=== PATIENT | male | born 1950 | race Caucasian/White ===

== ENCOUNTER → 2016-04-09 | Outpatient (REF) | payer BC ==
[2016-04-09 19:00] LABS: ALBUMIN 4.1 GM/DL (3.2-5.2); ALBUMIN/GLOBULIN RATIO 1.11 (1.00-1.93); ALKALINE PHOSPHATASE 78 U/L (45-117); ALT/SGPT 54 U/L (12-78); ANION GAP 12 MEQ/L (8-16); AST/SGOT 30 U/L (15-37); BILIRUBIN,TOTAL 0.5 MG/DL (0.2-1.0); BLOOD UREA NITROGEN 15 MG/DL (7-18); CALCIUM LEVEL 9.4 MG/DL (8.8-10.2); CARBON DIOXIDE LEVEL 23 MEQ/L (21-32); CHLORIDE LEVEL 104 MEQ/L (98-107); CHOLESTEROL LEVEL 189 MG/DL (<200); GLOMERULAR FILTRATION RATE > 60.0 (>49); GLUCOSE, FASTING 110 MG/DL (80-110); POTASSIUM SERUM 4.5 MEQ/L (3.5-5.1); SODIUM LEVEL 139 MEQ/L (136-145); TOTAL PROTEIN 7.8 GM/DL (6.4-8.2); TRIGLYCERIDES LEVEL 197 MG/DL (<150)
== END ==
LOC: M SFHCCLAY 12:18
PROVIDERS: ATTEND Nurse Practitioner Family
DX: E11.9 Type 2 diabetes mellitus without complications (principal); E78.2 Mixed hyperlipidemia

== ENCOUNTER → 2016-04-23 | Outpatient (REF) | payer BC ==
[2016-04-23 17:32] LABS: CALCIUM OXALATE CRYSTALS SMALL
[2016-04-23 17:35] LABS: BASO # 0.1 K/mm3 (0.0-0.2); BASO % 0.8 % (0.0-1.0); EOS # 0.7 K/mm3 (0.0-0.50); EOS % 8.7 % (0.0-3.0); LARGE UNSTAINED CELL # 0.2 K/mm3 (0.0-0.4); LARGE UNSTAINED CELL % 2.3 % (0.0-4.0); LYMPH # 1.8 K/mm3 (1.5-4.5); LYMPH % 20.9 % (24.0-44.0); MEAN CORPUSCULAR HEMOGLOBIN 31.2 pg (27.0-33.0); MEAN CORPUSCULAR HGB CONC 33.6 g/dl (32.0-36.5); MONO # 0.4 K/mm3 (0.0-0.8); MONO % 4.5 % (0.0-5.0); NEUTROPHILS # 5.3 K/mm3 (1.8-7.7); NEUTROPHILS % 62.9 % (36.0-66.0); PLATELET COUNT, AUTOMATED 182 k/mm3 (150-450); RED CELL DISTRIBUTION WIDTH 12.8 % (11.5-14.5); WHITE BLOOD COUNT 8.4 K/mm3 (4.0-10.0)
== END ==
LOC: M SFHCCLAY 13:09
PROVIDERS: ATTEND Nurse Practitioner Family
DX: R35.0 Frequency of micturition (principal)
CPT/HCPCS: 81001; 85025; 87086; G0103

== ENCOUNTER → 2016-06-13 | Outpatient (REF) | payer BC | LOC: M SFHCPLAZ 15:54 | PROVIDERS: ATTEND Nurse Practitioner Family | DX: L98.9 Disorder of the skin and subcutaneous tissue, unspecified (principal); D04.39 Carcinoma in situ of skin of other parts of face; Z85.828 Personal history of other malignant neoplasm of skin ==

== ENCOUNTER → 2016-07-30 | Outpatient (REF) | payer BC ==
[2016-07-30 18:17] LABS: MEAN CORPUSCULAR HGB CONC 33.6 g/dl (32.0-36.5); MEAN CORPUSCULAR VOLUME 95.4 fl (80.0-96.0); WHITE BLOOD COUNT 9.8 K/mm3 (4.0-10.0)
[2016-07-30 20:26] LABS: ANION GAP 6 MEQ/L (8-16); BLOOD UREA NITROGEN 14 MG/DL (7-18); CALCIUM LEVEL 9.5 MG/DL (8.8-10.2); CARBON DIOXIDE LEVEL 28 MEQ/L (21-32); CHLORIDE LEVEL 105 MEQ/L (98-107); CREATININE FOR GFR 0.99 MG/DL (0.70-1.30); GLOMERULAR FILTRATION RATE > 60.0 (>49); GLUCOSE, FASTING 104 MG/DL (80-110); POTASSIUM SERUM 4.6 MEQ/L (3.5-5.1); SODIUM LEVEL 139 MEQ/L (136-145)
== END ==
LOC: M SFHCPLAZ 14:10 → M LABDRAWC 14:11
PROVIDERS: ATTEND Physician Assistant
DX: Z01.818 Encounter for other preprocedural examination (principal)

== ENCOUNTER → 2016-10-10 | Outpatient (REF) | payer BC ==
[2016-10-10 11:30] LABS: ALBUMIN 3.6 GM/DL (3.2-5.2); ALBUMIN/GLOBULIN RATIO 0.97 (1.00-1.93); ALKALINE PHOSPHATASE 79 U/L (45-117); ALT/SGPT 60 U/L (12-78); ANION GAP 5 MEQ/L (8-16); AST/SGOT 36 U/L (15-37); BILIRUBIN,TOTAL 0.4 MG/DL (0.2-1.0); BLOOD UREA NITROGEN 12 MG/DL (7-18); CALCIUM LEVEL 9.1 MG/DL (8.8-10.2); CARBON DIOXIDE LEVEL 28 MEQ/L (21-32); CHLORIDE LEVEL 108 MEQ/L (98-107); CHOLESTEROL LEVEL 155 MG/DL (<200); CREATININE FOR GFR 1.15 MG/DL (0.70-1.30); GLOMERULAR FILTRATION RATE > 60.0 (>49); GLUCOSE, FASTING 135 MG/DL (80-110); POTASSIUM SERUM 4.3 MEQ/L (3.5-5.1); SODIUM LEVEL 141 MEQ/L (136-145); TOTAL PROTEIN 7.3 GM/DL (6.4-8.2); TRIGLYCERIDES LEVEL 123 MG/DL (<150)
== END ==
LOC: M SFHCCLAY 08:32
PROVIDERS: ATTEND Nurse Practitioner Family
DX: E11.9 Type 2 diabetes mellitus without complications (principal); E78.2 Mixed hyperlipidemia; R80.9 Proteinuria, unspecified

== ENCOUNTER → 2016-10-17 | Outpatient (REF) | payer BC ==
[2016-10-17 12:03] LABS: CALCIUM OXALATE CRYSTALS SMALL
== END ==
LOC: M SFHCCLAY 09:13
PROVIDERS: ATTEND Nurse Practitioner Family
DX: R80.9 Proteinuria, unspecified (principal); E11.8 Type 2 diabetes mellitus with unspecified complications

== ENCOUNTER → 2016-11-26 | Outpatient (CLI) | payer BC ==
--- NOTE | 2016-11-26 14:37 | REP ---
LOW-DOSE NONCONTRAST CHEST CT: HISTORY: Lung cancer screening study. Former smoker. COMPARISON: Chest x-ray 07/17/2015. FINDINGS: Digital cell plasterer radiograph is unremarkable. There are mild emphysematous changes in the upper lobes, right more so than left. An area of pleuroparenchymal fibrosis is seen in the right apex. There is a zone of mild pleural thickening along the major fissure on the right, and minimal fibrotic changes are seen in the bases. No significant pulmonary nodule or mass lesion is apparent. IMPRESSION: Negative low-dose screening chest CT study. Signed by Osman Degroot MD 11/26/2016 04:33 P
== END ==
LOC: M RAD 07:16
PROVIDERS: ATTEND Nurse Practitioner Family
DX: Z87.891 Personal history of nicotine dependence (principal)

== ENCOUNTER → 2017-07-29 | Outpatient (REF) | payer BC ==
[2017-07-29 17:50] LABS: ESTIMATED AVERAGE GLUCOSE 157 MG/DL (60-110); HEMOGLOBIN A1c 7.1 %
[2017-07-29 17:53] LABS: ALBUMIN 3.8 GM/DL (3.2-5.2); ALBUMIN/GLOBULIN RATIO 1.03 (1.00-1.93); ALKALINE PHOSPHATASE 86 U/L (45-117); ALT/SGPT 77 U/L (12-78); ANION GAP 5 MEQ/L (8-16); AST/SGOT 54 U/L (7-37); BILIRUBIN,TOTAL 0.5 MG/DL (0.2-1.0); BLOOD UREA NITROGEN 12 MG/DL (7-18); CALCIUM LEVEL 9.2 MG/DL (8.8-10.2); CARBON DIOXIDE LEVEL 27 MEQ/L (21-32); CHLORIDE LEVEL 108 MEQ/L (98-107); GLOMERULAR FILTRATION RATE > 60.0 (>49); GLUCOSE, FASTING 123 MG/DL (70-100); POTASSIUM SERUM 4.4 MEQ/L (3.5-5.1); SODIUM LEVEL 140 MEQ/L (136-145); TOTAL PROTEIN 7.5 GM/DL (6.4-8.2)
== END ==
LOC: M SFHCCLAY 12:49
DX: E11.8 Type 2 diabetes mellitus with unspecified complications (principal); E55.9 Vitamin D deficiency, unspecified
CPT/HCPCS: 80053

== ENCOUNTER → 2017-08-04 | Outpatient (CLI) | payer BC ==
[~2017-08-04] MED LIST: ISOVUE-370 76% 100ML VIAL (Q9967) As Ordered
== END ==
LOC: M RAD 08:30
DX: K46.9 Unspecified abdominal hernia without obstruction or gangrene (principal); K40.90 Unilateral inguinal hernia, without obstruction or gangrene, not specified as recurrent; K80.20 Calculus of gallbladder without cholecystitis without obstruction; N40.1 Benign prostatic hyperplasia with lower urinary tract symptoms; Z85.528 Personal history of other malignant neoplasm of kidney
CPT/HCPCS: Q9967

== ENCOUNTER → 2017-08-05 | Outpatient (REF) | payer BC ==
[2017-08-08 00:08] LABS: PSA TOTAL 0.7 ng/mL (0.0-4.0)
== END ==
LOC: M LAB REF 17:38
DX: N40.1 Benign prostatic hyperplasia with lower urinary tract symptoms (principal)
CPT/HCPCS: 84154

== ENCOUNTER → 2018-01-30 | Outpatient (CLI) | payer BC | LOC: M RAD 07:35 | DX: Z12.2 Encounter for screening for malignant neoplasm of respiratory organs (principal); Z87.891 Personal history of nicotine dependence | CPT/HCPCS: G0297 ==

== ENCOUNTER → 2018-03-26 | Outpatient (REF) | payer BC | LOC: M SFHCPLAZ 08:14 | PROVIDERS: ATTEND Nurse Practitioner Family | DX: R79.89 Other specified abnormal findings of blood chemistry (principal) ==

== ENCOUNTER → 2018-04-01 | Outpatient (CLI) | payer BC ==
--- NOTE | 2018-04-02 04:49 | REP ---
Clinical: Elevated liver function tests . Technique: Guajardo scale ultrasound using curved array transducer. Findings: The liver is enlarged and echogenic with poor through transmission suggesting fatty infiltration. No focal hepatic lesion identified. Pancreas is incompletely evaluated due to interposed bowel gas but visualized portions appear normal. The gallbladder is partially contracted and demonstrates multiple gallstones. No pericholecystic fluid identified or sonographic Vidal's sign was elicited. No biliary ductal dilatation is appreciated, and the common bile duct measures 4.0 mm diameter. The right kidney is normal in reniform shape without hydronephrosis and measures 13.4 x 7.6 x 6.2 cm. No ascites. Visualized portions of the abdominal aorta normal. Impression: 1. Hepatomegaly with fatty infiltration. No focal hepatic lesion identified. 2. Cholelithiasis. 3. Enlarged right kidney may be secondary to chronic vascular compromise of the left kidney. Electronically Signed by Maxi Bermudez MD 04/02/2018 04:41 A
== END ==
LOC: M RAD 07:21
PROVIDERS: ATTEND Nurse Practitioner Family
DX: R16.0 Hepatomegaly, not elsewhere classified (principal); K80.00 Calculus of gallbladder with acute cholecystitis without obstruction; N28.81 Hypertrophy of kidney; R79.89 Other specified abnormal findings of blood chemistry

== ENCOUNTER → 2018-05-05 | Outpatient (REF) | payer BC ==
[2018-05-05 16:31] LABS: ALT/SGPT 110 U/L (12-78); BILIRUBIN,TOTAL 0.5 MG/DL (0.2-1.0); BLOOD UREA NITROGEN 14 MG/DL (7-18); CALCIUM LEVEL 9.5 MG/DL (8.8-10.2); CARBON DIOXIDE LEVEL 27 MEQ/L (21-32); CHLORIDE LEVEL 102 MEQ/L (98-107); CREATININE FOR GFR 1.01 MG/DL (0.70-1.30); GLOMERULAR FILTRATION RATE > 60.0 (>49); GLUCOSE, FASTING 124 MG/DL (70-100); POTASSIUM SERUM 4.6 MEQ/L (3.5-5.1); SODIUM LEVEL 138 MEQ/L (136-145); TOTAL PROTEIN 7.8 GM/DL (6.4-8.2)
[2018-05-05 17:16] LABS: CREATININE, URINE 75.4 MG/DL; MAU/CREAT RATIO 724.1 MCG/MG (0.0-30.0)
[2018-05-05 17:24] LABS: HEMOGLOBIN A1c 7.6 %
== END ==
LOC: M SFHCCLAY 11:44
PROVIDERS: ATTEND Nurse Practitioner Family
DX: R79.89 Other specified abnormal findings of blood chemistry (principal); E11.65 Type 2 diabetes mellitus with hyperglycemia; R80.9 Proteinuria, unspecified

== ENCOUNTER → 2018-08-03 | Outpatient (REF) | payer BC ==
[2018-08-03 17:00] LABS: ALBUMIN 3.9 GM/DL (3.2-5.2); ALT/SGPT 58 U/L (12-78); BILIRUBIN,TOTAL 0.5 MG/DL (0.2-1.0); BLOOD UREA NITROGEN 15 MG/DL (7-18); CARBON DIOXIDE LEVEL 26 MEQ/L (21-32); CHLORIDE LEVEL 107 MEQ/L (98-107); CHOLESTEROL LEVEL 166 MG/DL (<200); CHOLESTEROL RISK RATIO 3.688 (<5); CREATININE FOR GFR 1.05 MG/DL (0.70-1.30); GLOMERULAR FILTRATION RATE > 60.0 (>49); GLUCOSE, FASTING 122 MG/DL (70-100); HDL CHOLESTEROL 45 MG/DL (>40); LDL CHOLESTEROL 97 MG/DL (<100); NON-HDL-C 121 MG/DL; POTASSIUM SERUM 4.1 MEQ/L (3.5-5.1); SODIUM LEVEL 139 MEQ/L (136-145); TOTAL PROTEIN 7.6 GM/DL (6.4-8.2); TRIGLYCERIDES LEVEL 119 MG/DL (<150)
[2018-08-03 17:44] LABS: HEMOGLOBIN A1c 6.7 %
[2018-08-03 17:50] LABS: CREATININE, URINE 99.7 MG/DL; MAU/CREAT RATIO 796.3 MCG/MG (0.0-30.0)
== END ==
LOC: M SFHCCLAY 11:41
PROVIDERS: ATTEND Nurse Practitioner Family
DX: I10 Essential (primary) hypertension (principal); E11.29 Type 2 diabetes mellitus with other diabetic kidney complication; E78.2 Mixed hyperlipidemia; R80.9 Proteinuria, unspecified

== ENCOUNTER → 2019-02-26 | Outpatient (REF) | payer BC ==
[2019-02-26 12:15] LABS: ALBUMIN 3.4 GM/DL (3.2-5.2); ALT/SGPT 67 U/L (12-78); BILIRUBIN,TOTAL 0.3 MG/DL (0.2-1.0); BLOOD UREA NITROGEN 13 MG/DL (7-18); CALCIUM LEVEL 9.7 MG/DL (8.8-10.2); CARBON DIOXIDE LEVEL 27 MEQ/L (21-32); CHLORIDE LEVEL 108 MEQ/L (98-107); CHOLESTEROL LEVEL 164 MG/DL (<200); CHOLESTEROL RISK RATIO 4.432 (<5); CREATININE FOR GFR 1.09 MG/DL (0.70-1.30); GLOMERULAR FILTRATION RATE > 60.0 (>49); GLUCOSE, FASTING 132 MG/DL (70-100); HDL CHOLESTEROL 37 MG/DL (>40); LDL CHOLESTEROL 80 MG/DL (<100); NON-HDL-C 127 MG/DL; POTASSIUM SERUM 4.2 MEQ/L (3.5-5.1); SODIUM LEVEL 141 MEQ/L (136-145); TRIGLYCERIDES LEVEL 235 MG/DL (<150)
[2019-02-26 12:31] LABS: HEMOGLOBIN A1c 6.7 %
[2019-02-26 13:13] LABS: MAU/CREAT RATIO 683.8 MCG/MG (0.0-30.0)
== END ==
LOC: M SFHCCLAY 06:47
PROVIDERS: ATTEND Nurse Practitioner Family
DX: E11.29 Type 2 diabetes mellitus with other diabetic kidney complication (principal); E78.2 Mixed hyperlipidemia

== ENCOUNTER → 2019-04-08 | Outpatient (CLI) | payer BC ==
--- NOTE | 2019-04-08 08:25 | REP ---
Chest x-ray: Two views. History: Hypertension. Comparison study: July 17, 2015. Findings: The lungs are well inflated and clear. Pleural angles are sharp. Heart size is normal. Pulmonary vasculature is not increased. There are degenerative changes in the thoracic spine. Pulmonary vasculature is not increased. Impression: No acute disease. Electronically Signed by Osman Degroot MD 04/08/2019 08:16 A
== END ==
LOC: M CLY 07:57
PROVIDERS: ATTEND Nurse Practitioner Family
DX: I10 Essential (primary) hypertension (principal)

== ENCOUNTER → 2019-08-12 | Outpatient (REF) | payer BC ==
[2019-08-15 00:06] LABS: PSA TOTAL 0.7 ng/mL (0.0-4.0)
== END ==
LOC: M LABDRAWC 15:51
PROVIDERS: ATTEND Urology
DX: N40.1 Benign prostatic hyperplasia with lower urinary tract symptoms (principal)

== ENCOUNTER → 2020-04-20 | Outpatient (REF) | payer BC ==
[2020-04-20 16:48] LABS: ALBUMIN 3.6 GM/DL (3.2-5.2); ALT/SGPT 106 U/L (12-78); BILIRUBIN,TOTAL 0.6 MG/DL (0.2-1.0); BLOOD UREA NITROGEN 12 MG/DL (7-18); CALCIUM LEVEL 9.3 MG/DL (8.8-10.2); CARBON DIOXIDE LEVEL 28 MEQ/L (21-32); CHLORIDE LEVEL 106 MEQ/L (98-107); CHOLESTEROL LEVEL 176 MG/DL (<200); CREATININE FOR GFR 1.12 MG/DL (0.70-1.30); GLOMERULAR FILTRATION RATE > 60.0 (>42); GLUCOSE, FASTING 95 MG/DL (70-100); HDL CHOLESTEROL 42 MG/DL (>40); LDL CHOLESTEROL 105 MG/DL (<100); NON-HDL-C 134 MG/DL; POTASSIUM SERUM 4.4 MEQ/L (3.5-5.1); SODIUM LEVEL 139 MEQ/L (136-145); TOTAL PROTEIN 7.5 GM/DL (6.4-8.2); TRIGLYCERIDES LEVEL 143 MG/DL (<150)
[2020-04-20 16:52] LABS: TOTAL 25(OH) VITAMIN D 39.9 NG/ML (30.0-100.0)
[2020-04-20 17:15] LABS: MAU/CREAT RATIO 1782.1 MCG/MG (0.0-30.0)
[2020-04-20 18:04] LABS: HEMOGLOBIN A1c 6.5 %
== END ==
LOC: M SFHCCLAY 13:17
PROVIDERS: ATTEND Nurse Practitioner Family
DX: E78.2 Mixed hyperlipidemia (principal); E11.9 Type 2 diabetes mellitus without complications; E55.9 Vitamin D deficiency, unspecified

== ENCOUNTER → 2020-05-17 | Outpatient (CLI) | payer BC ==
--- NOTE | 2020-05-17 10:32 | REP ---
INDICATION: AAA SCREENING, FORMER SMOKER. COMPARISON: None. TECHNIQUE: Real-time sonographic evaluation of the abdominal aorta performed. FINDINGS: There is no sonographic evidence of abdominal aortic aneurysm. Maximum AP diameter of abdominal aorta: Proximal (at diaphragm):2.5 cm. At renal artery level: 1.9 cm Mid abdominal aorta:1.9 cm. Distal abdominal aorta (prebifurcation): 1.8 cm. Maximum AP diameter common iliac arteries: Right: 0.9 mm. Left: 1.2mm. IMPRESSION: No sonographic evidence of abdominal aortic aneurysm. <Electronically signed by Beni Guajardo > 05/17/20 1026
== END ==
LOC: M RAD 08:27
PROVIDERS: ATTEND Nurse Practitioner Family
DX: Z87.891 Personal history of nicotine dependence (principal)

== ENCOUNTER → 2020-07-28 | Outpatient (REF) | payer BC ==
[2020-07-28 17:05] LABS: ALT/SGPT 82 U/L (12-78); BLOOD UREA NITROGEN 12 MG/DL (7-18); CALCIUM LEVEL 9.4 MG/DL (8.8-10.2); CARBON DIOXIDE LEVEL 30 MEQ/L (21-32); CHLORIDE LEVEL 109 MEQ/L (98-107); CREATININE FOR GFR 1.07 MG/DL (0.70-1.30); GLOMERULAR FILTRATION RATE > 60.0 (>42); GLUCOSE, FASTING 110 MG/DL (70-100); POTASSIUM SERUM 3.8 MEQ/L (3.5-5.1); SODIUM LEVEL 145 MEQ/L (136-145)
[2020-07-28 17:06] LABS: ALBUMIN 3.4 GM/DL (3.2-5.2); BILIRUBIN,TOTAL 0.3 MG/DL (0.2-1.0); TOTAL PROTEIN 7.4 GM/DL (6.4-8.2)
[2020-07-28 17:19] LABS: HEMOGLOBIN A1c 6.4 %
[2020-07-28 17:55] LABS: MAU/CREAT RATIO 1811.4 MCG/MG (0.0-30.0)
== END ==
LOC: M SFHCCLAY 11:10
PROVIDERS: ATTEND Nurse Practitioner Family
DX: E11.8 Type 2 diabetes mellitus with unspecified complications (principal); R80.9 Proteinuria, unspecified

== ENCOUNTER → 2020-08-24 | Outpatient (REF) | payer BC | LOC: M LAB REF 15:52 | PROVIDERS: ATTEND Surgery | DX: Z01.812 Encounter for preprocedural laboratory examination (principal); Z20.822 Contact with and (suspected) exposure to COVID-19 ==

== ENCOUNTER → 2021-03-28 | Outpatient (REF) | payer BC ==
[2021-03-28 16:46] LABS: ALBUMIN 3.5 GM/DL (3.2-5.2); BILIRUBIN,TOTAL 0.4 MG/DL (0.2-1.0); CALCIUM LEVEL 9.4 MG/DL (8.8-10.2); CHOLESTEROL RISK RATIO 4.972 (<5); CREATININE FOR GFR 1.28 MG/DL (0.70-1.30); POTASSIUM SERUM 4.8 MEQ/L (3.5-5.1); TOTAL PROTEIN 7.5 GM/DL (6.4-8.2)
[2021-03-28 17:14] LABS: MAU/CREAT RATIO 1591.5 MCG/MG (0.0-30.0)
== END ==
LOC: M SFHCCLAY 11:23
PROVIDERS: ATTEND Family Medicine
DX: E78.2 Mixed hyperlipidemia (principal); E11.29 Type 2 diabetes mellitus with other diabetic kidney complication

== ENCOUNTER → 2021-07-09 | Outpatient (REF) | payer MEDICARE ==
[2021-07-09 17:00] LABS: BLOOD UREA NITROGEN 17 MG/DL (7-18); CALCIUM LEVEL 9.3 MG/DL (8.8-10.2); CARBON DIOXIDE LEVEL 26 MEQ/L (21-32); CHLORIDE LEVEL 111 MEQ/L (98-107); CREATININE FOR GFR 1.08 MG/DL (0.70-1.30); GLOMERULAR FILTRATION RATE > 60.0 (>42); GLUCOSE, FASTING 111 MG/DL (70-100); POTASSIUM SERUM 5.2 MEQ/L (3.5-5.1); SODIUM LEVEL 142 MEQ/L (136-145)
[2021-07-09 17:02] LABS: HEMOGLOBIN A1c 7.3 %
== END ==
LOC: M SFHCCLAY 10:46
PROVIDERS: ATTEND Family Medicine
DX: E11.65 Type 2 diabetes mellitus with hyperglycemia (principal)

== ENCOUNTER → 2021-09-06 | Outpatient (REF) | payer BC, MEDICARE | LOC: M LABDRAWC 15:31 | DX: N40.1 Benign prostatic hyperplasia with lower urinary tract symptoms (principal) ==

== ENCOUNTER → 2021-10-02 | Outpatient (REF) | payer MEDICARE ==
[2021-10-02 18:24] LABS: BLOOD UREA NITROGEN 17 MG/DL (7-18); CARBON DIOXIDE LEVEL 28 MEQ/L (21-32); CHLORIDE LEVEL 109 MEQ/L (98-107); CREATININE FOR GFR 1.25 MG/DL (0.70-1.30); GLOMERULAR FILTRATION RATE > 60.0 (>42); GLUCOSE, FASTING 122 MG/DL (70-100); POTASSIUM SERUM 4.4 MEQ/L (3.5-5.1); SODIUM LEVEL 140 MEQ/L (136-145)
[2021-10-02 23:27] LABS: HEMOGLOBIN A1c 6.2 %
== END ==
LOC: M SFHCCLAY 10:59
PROVIDERS: ATTEND Nurse Practitioner Family
DX: E11.8 Type 2 diabetes mellitus with unspecified complications (principal)

== ENCOUNTER → 2021-10-16 | Outpatient (REF) | payer MEDICARE ==
[2021-10-16 11:58] LABS: HEMOGLOBIN 15.6 g/dl (13.5-17.5); MEAN CORPUSCULAR HGB CONC 33.2 g/dl (32.0-36.5); MEAN CORPUSCULAR VOLUME 93.3 fl (80.0-96.0); PLATELET COUNT, AUTOMATED 140 10^3/uL (150-450); RED BLOOD COUNT 5.04 10^6/uL (4.30-6.10); WHITE BLOOD COUNT 7.8 10^3/uL (4.0-10.0)
[2021-10-16 13:02] LABS: ALBUMIN 3.4 GM/DL (3.2-5.2); ALT/SGPT 65 U/L (12-78); BILIRUBIN,TOTAL 0.5 MG/DL (0.2-1.0); BLOOD UREA NITROGEN 16 MG/DL (7-18); CARBON DIOXIDE LEVEL 29 MEQ/L (21-32); CHLORIDE LEVEL 109 MEQ/L (98-107); CHOLESTEROL LEVEL 134 MG/DL (<200); CHOLESTEROL RISK RATIO 3.116 (<5); GLOMERULAR FILTRATION RATE > 60.0 (>42); GLUCOSE, FASTING 128 MG/DL (70-100); HDL CHOLESTEROL 43 MG/DL (>40); LDL CHOLESTEROL 61 MG/DL (<100); NON-HDL-C 91 MG/DL; POTASSIUM SERUM 4.3 MEQ/L (3.5-5.1); SODIUM LEVEL 141 MEQ/L (136-145); TRIGLYCERIDES LEVEL 150 MG/DL (<150)
[2021-10-16 14:33] LABS: HEMOGLOBIN A1c 6.4 %
== END ==
LOC: M SFHCCLAY 08:41
PROVIDERS: ATTEND Nurse Practitioner Family
DX: E11.29 Type 2 diabetes mellitus with other diabetic kidney complication (principal); I11.9 Hypertensive heart disease without heart failure; E78.5 Hyperlipidemia, unspecified; E55.9 Vitamin D deficiency, unspecified

== ENCOUNTER → 2022-02-26 | Outpatient (CLI) | payer MEDICARE | LOC: M CLY 10:30 | PROVIDERS: ATTEND Nurse Practitioner Family | DX: S63.502D Unspecified sprain of left wrist, subsequent encounter (principal); M79.89 Other specified soft tissue disorders; S62.102A Fracture of unspecified carpal bone, left wrist, initial encounter for closed fracture; X58.XXXA Exposure to other specified factors, initial encounter; Y92.9 Unspecified place or not applicable; Y93.9 Activity, unspecified; Y99.9 Unspecified external cause status; E11.29 Type 2 diabetes mellitus with other diabetic kidney complication; I11.9 Hypertensive heart disease without heart failure; E78.5 Hyperlipidemia, unspecified; E55.9 Vitamin D deficiency, unspecified ==

== ENCOUNTER → 2022-02-26 | Outpatient (REF) | payer MEDICARE ==
[2022-02-26 17:23] LABS: HEMATOCRIT 49.4 % (42.0-52.0); HEMOGLOBIN 15.8 g/dl (13.5-17.5); MEAN CORPUSCULAR HEMOGLOBIN 30.5 pg (27.0-33.0); MEAN CORPUSCULAR VOLUME 95.4 fl (80.0-96.0); PLATELET COUNT, AUTOMATED 191 10^3/uL (150-450); RED BLOOD COUNT 5.18 10^6/uL (4.30-6.10); WHITE BLOOD COUNT 9.2 10^3/uL (4.0-10.0)
[2022-02-26 18:09] LABS: ALBUMIN 3.6 G/DL (3.2-5.2); ALKALINE PHOSPHATASE 97 U/L (46-116); ALT/SGPT 68 U/L (7.0-40); AST/SGOT 38 U/L (<34); BILIRUBIN,TOTAL 0.4 MG/DL (0.3-1.2); BLOOD UREA NITROGEN 14 MG/DL (9-23); CALCIUM LEVEL 9.6 MG/DL (8.3-10.6); CARBON DIOXIDE LEVEL 27 MMOL/L (20-31); CHLORIDE LEVEL 106 MMOL/L (98-107); CHOLESTEROL LEVEL 130 MG/DL (<200); CREATININE FOR GFR 1.08 MG/DL (0.70-1.30); GLOMERULAR FILTRATION RATE > 60.0 (>42); GLUCOSE, FASTING 131 MG/DL (74-106); HDL CHOLESTEROL 43.3 MG/DL (>40); LDL CHOLESTEROL 68.1 MG/DL (<100); NON-HDL-C 87 MG/DL; POTASSIUM SERUM 4.9 MMOL/L (3.5-5.1); SODIUM LEVEL 138 MMOL/L (136-145); TOTAL PROTEIN 7.3 G/DL (5.7-8.2); TRIGLYCERIDES LEVEL 93 MG/DL (<150)
[2022-02-26 18:11] LABS: TOTAL 25(OH) VITAMIN D 41.1 NG/ML (20.0-100.0)
[2022-02-26 19:28] LABS: HEMOGLOBIN A1c 6.3 % (4.0-6.0)
== END ==
LOC: M SFHCCLAY 10:28
PROVIDERS: ATTEND Nurse Practitioner Family
DX: E11.29 Type 2 diabetes mellitus with other diabetic kidney complication (principal); I11.9 Hypertensive heart disease without heart failure; E78.5 Hyperlipidemia, unspecified; E55.9 Vitamin D deficiency, unspecified

== ENCOUNTER → 2022-06-06 | Outpatient (CLI) | payer MEDICARE | LOC: M RAD 15:19 | PROVIDERS: ATTEND Nurse Practitioner Family | DX: Z87.891 Personal history of nicotine dependence (principal) ==

== ENCOUNTER → 2022-08-15 | Outpatient (REF) | payer MEDICARE ==
[2022-08-15 17:43] LABS: CREATININE, URINE 107.5 MG/DL
[2022-08-15 17:45] LABS: ALBUMIN 3.8 G/DL (3.2-5.2); ALKALINE PHOSPHATASE 87 U/L (46-116); ALT/SGPT 56 U/L (7.0-40); AST/SGOT 40 U/L (<34); BILIRUBIN,TOTAL 0.5 MG/DL (0.3-1.2); BLOOD UREA NITROGEN 16 MG/DL (9-23); CALCIUM LEVEL 9.6 MG/DL (8.3-10.6); CARBON DIOXIDE LEVEL 28 MMOL/L (20-31); CHLORIDE LEVEL 105 MMOL/L (98-107); CHOLESTEROL LEVEL 145 MG/DL (<200); CHOLESTEROL RISK RATIO 3.71 (<5); CREATININE FOR GFR 1.17 MG/DL (0.70-1.30); GLOMERULAR FILTRATION RATE > 60.0 (>42); GLUCOSE, FASTING 144 MG/DL (74-106); LDL CHOLESTEROL 66.2 MG/DL (<100); POTASSIUM SERUM 4.5 MMOL/L (3.5-5.1); SODIUM LEVEL 139 MMOL/L (136-145); TOTAL PROTEIN 7.4 G/DL (5.7-8.2); TRIGLYCERIDES LEVEL 199 MG/DL (<150)
[2022-08-15 17:49] LABS: TOTAL 25(OH) VITAMIN D 33.7 NG/ML (20.0-100.0)
== END ==
LOC: M SFHCCLAY 10:49
PROVIDERS: ATTEND Nurse Practitioner Family
DX: E78.2 Mixed hyperlipidemia (principal); I25.10 Atherosclerotic heart disease of native coronary artery without angina pectoris; E11.29 Type 2 diabetes mellitus with other diabetic kidney complication; K76.0 Fatty (change of) liver, not elsewhere classified; E55.9 Vitamin D deficiency, unspecified; N40.1 Benign prostatic hyperplasia with lower urinary tract symptoms

== ENCOUNTER → 2022-09-13 | Outpatient (REF) | payer MEDICARE | LOC: M LABDRAWC 17:21 | PROVIDERS: ATTEND Urology | DX: Z12.5 Encounter for screening for malignant neoplasm of prostate (principal); N40.0 Benign prostatic hyperplasia without lower urinary tract symptoms ==

== ENCOUNTER → 2023-02-17 | Outpatient (REF) | payer MEDICARE ==
[2023-02-17 17:57] LABS: ALBUMIN 3.6 G/DL (3.2-5.2); ALKALINE PHOSPHATASE 76 U/L (46-116); ALT/SGPT 55 U/L (7.0-40); AST/SGOT 54 U/L (<34); BILIRUBIN,TOTAL 0.5 MG/DL (0.3-1.2); BLOOD UREA NITROGEN 13 MG/DL (9-23); CALCIUM LEVEL 9.4 MG/DL (8.3-10.6); CARBON DIOXIDE LEVEL 25 MMOL/L (20-31); CHLORIDE LEVEL 105 MMOL/L (98-107); CHOLESTEROL LEVEL 143 MG/DL (<200); CHOLESTEROL RISK RATIO 3.77 (<5); GLOMERULAR FILTRATION RATE > 60.0 (>42); GLUCOSE, FASTING 146 MG/DL (74-106); HDL CHOLESTEROL 37.9 MG/DL (>40); LDL CHOLESTEROL 75.7 MG/DL (<100); NON-HDL-C 105.1 MG/DL; POTASSIUM SERUM 4.4 MMOL/L (3.5-5.1); SODIUM LEVEL 138 MMOL/L (136-145); TOTAL 25(OH) VITAMIN D 40.3 NG/ML (20.0-100.0); TOTAL PROTEIN 7.1 G/DL (5.7-8.2); TRIGLYCERIDES LEVEL 147 MG/DL (<150)
[2023-02-17 18:07] LABS: HEMOGLOBIN A1c 7.2 % (4.0-6.0)
== END ==
LOC: M SFHCCLAY 10:01
PROVIDERS: ATTEND Nurse Practitioner Family
DX: E78.2 Mixed hyperlipidemia (principal); I25.10 Atherosclerotic heart disease of native coronary artery without angina pectoris; E11.29 Type 2 diabetes mellitus with other diabetic kidney complication; K76.0 Fatty (change of) liver, not elsewhere classified; E55.9 Vitamin D deficiency, unspecified; N40.1 Benign prostatic hyperplasia with lower urinary tract symptoms

== ENCOUNTER → 2023-08-13 | Outpatient (REF) | payer MEDICARE ==
[2023-08-13 17:13] LABS: CREATININE, URINE 164.4 MG/DL
[2023-08-13 17:25] LABS: MAU/CREAT RATIO 841.2 MCG/MG (0.0-30.0)
[2023-08-13 17:41] LABS: ALBUMIN 3.6 G/DL (3.2-5.2); BILIRUBIN,TOTAL 0.5 MG/DL (0.3-1.2); CALCIUM LEVEL 9.5 MG/DL (8.3-10.6); CHOLESTEROL RISK RATIO 3.82 (<5); CREATININE FOR GFR 1.27 MG/DL (0.70-1.30); GLOMERULAR FILTRATION RATE 59.2 (>42); HDL CHOLESTEROL 37.6 MG/DL (>40); LDL CHOLESTEROL 80.4 MG/DL (<100); NON-HDL-C 106.4 MG/DL; POTASSIUM SERUM 4.9 MMOL/L (3.5-5.1); TOTAL PROTEIN 7.3 G/DL (5.7-8.2)
[2023-08-13 17:42] LABS: HEMOGLOBIN A1c 7.5 % (4.0-6.0)
[2023-08-13 17:43] LABS: PSA SCREENING 0.97 NG/ML (< 4.00)
[2023-08-13 17:47] LABS: TOTAL 25(OH) VITAMIN D 47.1 NG/ML (20.0-100.0)
== END ==
LOC: M SFHCCLAY 11:46
PROVIDERS: ATTEND Nurse Practitioner Family
DX: E11.29 Type 2 diabetes mellitus with other diabetic kidney complication (principal); E78.2 Mixed hyperlipidemia; I25.10 Atherosclerotic heart disease of native coronary artery without angina pectoris; E55.9 Vitamin D deficiency, unspecified; N40.1 Benign prostatic hyperplasia with lower urinary tract symptoms; Z12.5 Encounter for screening for malignant neoplasm of prostate
CPT/HCPCS: 80053; 80061; 82043; 82306; 83036; G0103

== ENCOUNTER → 2023-09-03 | Outpatient (CLI) | payer MEDICARE | LOC: M RAD 14:19 | PROVIDERS: ATTEND Nurse Practitioner Family | DX: Z12.2 Encounter for screening for malignant neoplasm of respiratory organs (principal); F17.211 Nicotine dependence, cigarettes, in remission; J43.2 Centrilobular emphysema; I51.7 Cardiomegaly; I25.10 Atherosclerotic heart disease of native coronary artery without angina pectoris; I70.0 Atherosclerosis of aorta; K80.20 Calculus of gallbladder without cholecystitis without obstruction ==

== ENCOUNTER → 2023-11-17 | Outpatient (REF) | payer MEDICARE ==
[2023-11-17 19:05] LABS: HEMOGLOBIN A1c 6.8 % (4.0-6.0)
[2023-11-17 19:22] LABS: ALKALINE PHOSPHATASE 89 U/L (46-116); ALT/SGPT 61 U/L (7.0-40); AST/SGOT 50 U/L (<34); BILIRUBIN,TOTAL 0.6 MG/DL (0.3-1.2); BLOOD UREA NITROGEN 18 MG/DL (9-23); CALCIUM LEVEL 9.7 MG/DL (8.3-10.6); CARBON DIOXIDE LEVEL 27 MMOL/L (20-31); CHLORIDE LEVEL 106 MMOL/L (98-107); CREATININE FOR GFR 1.24 MG/DL (0.70-1.30); GLOMERULAR FILTRATION RATE > 60.0 (>42); GLUCOSE, FASTING 120 MG/DL (74-106); POTASSIUM SERUM 4.4 MMOL/L (3.5-5.1); SODIUM LEVEL 137 MMOL/L (136-145); TOTAL PROTEIN 7.9 G/DL (5.7-8.2)
== END ==
LOC: M SFHCCLAY 11:26
PROVIDERS: ATTEND Nurse Practitioner Family
DX: E11.29 Type 2 diabetes mellitus with other diabetic kidney complication (principal); K76.0 Fatty (change of) liver, not elsewhere classified

== ENCOUNTER → 2023-12-05 | Outpatient (CLI) | payer MEDICARE | LOC: M RAD 08:25 | PROVIDERS: ATTEND Nurse Practitioner Family | DX: R74.8 Abnormal levels of other serum enzymes (principal); K80.20 Calculus of gallbladder without cholecystitis without obstruction; K76.0 Fatty (change of) liver, not elsewhere classified ==

== ENCOUNTER → 2024-05-11 | Outpatient (REF) | payer MEDICARE ==
[2024-05-11 11:58] LABS: HEMOGLOBIN A1c 7.1 % (4.0-6.0)
[2024-05-11 12:12] LABS: ALBUMIN 3.8 G/DL (3.2-5.2); BILIRUBIN,TOTAL 0.5 MG/DL (0.3-1.2); CALCIUM LEVEL 9.6 MG/DL (8.3-10.6); CHOLESTEROL RISK RATIO 3.99 (<5); CREATININE FOR GFR 1.31 MG/DL (0.70-1.30); GLOMERULAR FILTRATION RATE 56.9 (>42); HDL CHOLESTEROL 40.8 MG/DL (>40); NON-HDL-C 122.2 MG/DL; POTASSIUM SERUM 4.6 MMOL/L (3.5-5.1); TOTAL PROTEIN 7.9 G/DL (5.7-8.2)
== END ==
LOC: M SFHCCLAY 07:00
PROVIDERS: ATTEND Nurse Practitioner Family
DX: R74.8 Abnormal levels of other serum enzymes (principal); E78.2 Mixed hyperlipidemia; I25.10 Atherosclerotic heart disease of native coronary artery without angina pectoris; E11.29 Type 2 diabetes mellitus with other diabetic kidney complication; E55.9 Vitamin D deficiency, unspecified; N40.1 Benign prostatic hyperplasia with lower urinary tract symptoms; I10 Essential (primary) hypertension

== ENCOUNTER → 2024-07-27 | Outpatient (CLI) | payer MEDICARE | LOC: M CLY 13:15 | PROVIDERS: ATTEND Chiropractor | DX: M25.552 Pain in left hip (principal) ==

== ENCOUNTER → 2024-09-27 | Outpatient (CLI) | payer MEDICARE | LOC: M RAD 08:09 | PROVIDERS: ATTEND Nurse Practitioner Family | DX: I25.10 Atherosclerotic heart disease of native coronary artery without angina pectoris (principal); I25.84 Coronary atherosclerosis due to calcified coronary lesion; F17.211 Nicotine dependence, cigarettes, in remission ==

== ENCOUNTER → 2024-10-12 | Outpatient (REF) | payer MEDICARE | LOC: M LABDRAWC 17:10 | PROVIDERS: ATTEND Urology | DX: N40.1 Benign prostatic hyperplasia with lower urinary tract symptoms (principal) ==

== ENCOUNTER → 2024-10-12 | Outpatient (REF) | payer MEDICARE ==
[2024-10-12 18:06] LABS: ALT/SGPT 53.0 U/L (7.0-40); AST/SGOT 53.0 U/L (<34); CALCIUM LEVEL 9.6 MG/DL (8.3-10.6); CARBON DIOXIDE LEVEL 28.0 MMOL/L (20-31); CHLORIDE LEVEL 105.0 MMOL/L (98-107); CHOLESTEROL LEVEL 166.0 MG/DL (<200); CHOLESTEROL RISK RATIO 4.46 (<5); CREATININE FOR GFR 1.35 MG/DL (0.70-1.30); GLOMERULAR FILTRATION RATE 54.8 (>42); LDL CHOLESTEROL 77.4 MG/DL (<100); NON-HDL-C 128.8 MG/DL; POTASSIUM SERUM 4.7 MMOL/L (3.5-5.1); SODIUM LEVEL 142.0 MMOL/L (136-145); TRIGLYCERIDES LEVEL 257.0 MG/DL (<150)
[2024-10-12 18:08] LABS: FREE T4 1.17 NG/DL (0.89-1.76)
[2024-10-12 18:41] LABS: CREATININE, URINE 99.8 MG/DL
[2024-10-12 18:54] LABS: MALB URINE SIEMENS 1030.0 MG/L; MAU/CREAT RATIO 1032.0 MCG/MG (0.0-30.0)
[2024-10-12 19:07] LABS: ESTIMATED AVERAGE GLUCOSE 177.0 MG/DL (60-110)
== END ==
LOC: M SFHCCLAY 10:54
PROVIDERS: ATTEND Nurse Practitioner Family
DX: R74.8 Abnormal levels of other serum enzymes (principal); E78.2 Mixed hyperlipidemia; I25.10 Atherosclerotic heart disease of native coronary artery without angina pectoris; E11.29 Type 2 diabetes mellitus with other diabetic kidney complication; E55.9 Vitamin D deficiency, unspecified; N40.1 Benign prostatic hyperplasia with lower urinary tract symptoms; I10 Essential (primary) hypertension; F17.211 Nicotine dependence, cigarettes, in remission